=== PATIENT | female | born 1985 | race Caucasian/White ===

== ENCOUNTER 2017-01-18 18:22 | Emergency (ER) | payer OTHER ==
[~2017-01-18] VITALS: Ht 170.2 cm; Wt 104.0 kg
[~2017-01-18 18:22] MED LIST: ALBUAER2 INH; DOCU-94 PO; PRENTAB26 PO; RANI150T3 PO
[2017-01-18 18:29] VITALS: TEMP 37.1; Ht 170.2 cm; Wt 104.0 kg
[2017-01-18] MEDS ORDERED: DEXAMETHASONE SOD INJ 10 MG/ML VIAL IM ONE (19:00)
[2017-01-18] MEDS ORDERED: MoRPHine SULFATE 4 MG/ML 1 ML CARP\\VIAL IM STA (19:00)
[2017-01-18] MEDS ORDERED: CITA20TA4 PO (19:00)
[2017-01-18] MEDS ORDERED: BCPILLS PO (19:00)
[2017-01-18] MEDS ORDERED: KETOROLAC TROMETHAMINE 60 MG/2 ML VIAL IM STA (19:00)
[2017-01-18] MEDS ORDERED: PRVHFAIN INH (19:00)
[2017-01-18] MEDS ORDERED: ONDANSETRON 4MG OD TAB PO ONE (19:00)
[2017-01-18] MEDS ORDERED: VALA1TAB31 PO (19:00)
[2017-01-18] MEDS ORDERED: ACET-1256 PO (19:01)
--- NOTE | 2017-01-18 19:48 | DIAGNOSTIC IMAGING REPORT ---
LUMBAR SPINE 5 VIEWS HISTORY: Low back pain. COMPARISON: None. FINDINGS: There is no fracture. No subluxation. Disc spaces are preserved. Cholecystectomy. IMPRESSION: No fracture or subluxation within the lumbar spine. Electronically signed by: Blake Hart M.D. 01/18/2017 7:47 PM Dictated Date/Time: 01/18/2017 7:46 PM
[2017-01-18] MEDS ORDERED: PRED50TA PO (20:28)
[2017-01-18] MEDS ORDERED: CYCL10TA6 PO (20:28)
[2017-01-18] MEDS ORDERED: OXYC1TAB3 PO (20:28)
[2017-01-18] MEDS ORDERED: OXYCODONE IR HOME PACK PO ONE (20:30)
[2017-01-18] MEDS ORDERED: FLEXERIL HOME PACK 10 MG VIAL PO ONE (20:30)
--- NOTE | 2017-01-18 20:30 | EMERGENCY ROOM VISIT NOTE ---
ED Visit Note First contact with patient: 18:36 Chief Complaint: Back Pain - Severe History of Present Illness: Patient is a 31-year-old female who presents to the emergency department today for evaluation of her low back pain. She's had increasing low back pain issues over the last few weeks. This evening, while lifting up her child, she felt an immediate pain and pop in her low back. She has had intense pain with change in position. She denies any numbness or weakness into the distal x-rays. She denies any pain radiating. She denies any loss of control bowel/bladder saddle anesthesia. She rates her current discomfort as a 3/10. She is tried nothing for her symptoms to this point. Patient denies any fevers, chills, abdominal pain, hematochezia, melena, hematuria, or dysuria. Medications: Reviewed and discussed with the patient. Allergies: Sucralfate PMH: No pertinent past medical history. SHx: Patient is a 31-year-old female who lives locally. ROS: All pertinent positive and negative review of systems are appropriately documented in the History of Present Illness. Physical Exam: VITAL SIGNS - Vital signs and nursing notes were reviewed. GENERAL - 31-year-old female appearing her stated age and in noticeable discomfort throughout the exam. NECK - FROM of the cervical spine. ABDOMEN - Abdominal contour obese without pulsations or visible masses. BS normoactive all four quadrants. No tenderness, palpable masses, hepatosplenomegaly, or ascites noted. MUSCULOSKELETAL - ROM of the lumbar spine region was limited secondary to patient discomfort. Pt was seated on the exam table. Pt made guarded movements when asked to change position. No step-off deformities were palpated down the thoracolumbar spines. Moderate Tenderness to Palpation experienced at the level of the Lumbar paraspinal muscle distribution. No reproducible tenderness to palpation across the iliac spine. NEUROLOGIC - REFLEXES: +3/4 patellar reflexes B/L. SENSORY: Spinothalamic tract was found to be intact with ability to discriminate sharp versus dull sensation at the level of hip joint down do the great toe. No sensory defects of the dorsal column were appreciated utilizing light touch for evaluation. CEREBELLAR: Pt able to perform rapid alternating movements of the feet. EXTREMITIES - Range of Motion - No tremors, ticks, or fasciculations of the lower extremities noticed during inspection. FROM of the lower extremities. No clonus noted with PROM of the lower extremities bilaterally. Pt had +5/5 strength appreciated bilaterally in the lower extremities against examiner's resistance. VASCULAR - Capillary refill of the great toe was brisk. No mottling or blanching of the extremities present. +3/5 dorsalis pedis pulses palpated bilaterally. IMAGING: LUMBAR SPINE 5 VIEWS HISTORY: Low back pain. COMPARISON: None. FINDINGS: There is no fracture. No subluxation. Disc spaces are preserved. Cholecystectomy. IMPRESSION: No fracture or subluxation within the lumbar spine. ED Course: Patient was seen and evaluated by myself. Patient was treated with formal grams morphine, 10 mg Decadron, 60 mg Toradol, and 4 mg Zofran. X-ray of the lumbar spine was obtained. Imaging results above. Patient was reevaluated and reports feeling somewhat better at this time. The patient was educated on imaging studies. She was educated on following with her primary care provider from today's visit. Patient educated on worrisome symptoms for return visit to the emergency department. Patient discharged home in good condition. In the evaluation and treatment of this patient the following differential diagnoses were considered: Cauda equina syndrome, discitis, HNP, sciatica, epidural abscess, psoas abscess, musculoskeletal strain, lumbar fracture, lumbar dislocation, lumbar subluxation, spondylolisthesis, spondylosis, or compression fracture. Given the patient's presentation and exam findings, I did elect to perform the above-mentioned workup. The patient presents today with acute onset of low back pain. She had been experiencing pain in her lumbar spine for the past several weeks prior to this. Reflexes are intact. Strength is intact. She has no worrisome exam findings for compressive etiology at this point. Her pain was adequately controlled the emergency department. She was placed on Flexeril, prednisone, and OxyIR for home. She'll follow-up with her primary care provider from today's visit or return for any changing/worsening symptoms. Patient discharged home afebrile and in good condition with her significant other driving. Impression: Lumbar Strain, Musculoskeletal Pain Discharge Instructions: You have been treated in the Emergency Department for Back Pain. You have received pain medicine in the emergency department which impairs your ability to operate a vehicle. It is illegal for you to drive after receiving these medicines. You have been prescribed OxyIR to be used for pain control. This is a narcotic medication. You cannot drive or consume alcohol while on this medicine. This medicine should only be used for pain that cannot be controlled with over-the- counter pain medicines. You have been prescribed Flexeril (cyclobenzaprine) 1-2 tabs orally, three times per day. Do NOT exceed 30 mg (6 tabs) per day. Take your first dose at bedtime as it can make you drowsy. Always take all medications as prescribed. You have been prescribed Prednisone 50 mg to be taken orally once a day for the next 4 days. This is an anti-inflammatory medicine to be used to help minimize your symptoms. You should take the COMPLETE course of the medication. For pain control, you can use the following [id number] medicines (if >12 yo): - Regular strength (325mg/tab) Tylenol (acetaminophen) 2 tabs every 4-6 hours as needed. Do not exceed 12 tablets in a 24 hour period. Avoid taking more than 4 grams (4000 mg) of Tylenol per day. This includes any other sources of acetaminophen you may take on a regular basis. - Regular strength (200 mg/tab) Advil (ibuprofen) 1-2 tabs every 4-6 hours as needed. Do not exceed a dose of 3200 mg per day. If this is an acute injury, ice can be applied to the area of pain for the first 3 days to help decrease pain and inflammation. After the first 3 days, a heating pad can be used over the area for continued soothing relief. You should schedule a follow-up appointment in 2-3 days with your Primary Care Provider for further evaluation and treatment of your back pain. Return to the Emergency Department if your current symptoms worsen despite treatment course outlined above, or if you develop any of the following symptoms : intractable pain despite aforementioned treatment course, loss of control of your bowel or bladder, numbness or tingling in your groin, or development of a fever. Current/Historical Medications Scheduled Control Pills ( Control Pills), 1 TAB PO DAILY Citalopram Hydrobromide (Citalopram Hydrobromide), 20 MG PO DAILY Cyclobenzaprine Hcl (Flexeril), 10 MG PO TID Prednisone (Prednisone), 50 MG PO DAILY Scheduled PRN Acetaminophen (Tylenol), 1,000 MG PO Q6H PRN for Pain Albuterol (Ventolin Hfa), 2 PUFFS INH Q4H PRN for SOB/Wheezing Oxycodone Ir (Roxicodone Ir), 1-2 TAB PO Q4H PRN for Pain Valacyclovir Hcl (Valtrex), 1,000 MG PO UD PRN for Cold Sore(s) Allergies Coded Allergies: Sucralfate (Verified Allergy, Unknown, rash, pruritis, 01/16/16) pt Vital Signs Date Time Temp Pulse Resp B/P Pulse Ox O2 Delivery O2 Flow Rate FiO2 01/18/17 18:29 37.1 91 18 134/81 97 Room Air Medications Administered Medications (Trade) Dose Ordered Sig/Jaimie Route Start Time Stop Time Status Last Admin Dose Admin Morphine Sulfate (MoRPHine SULFATE INJ) 4 mg NOW STAT IM 01/18/17 19:00 01/18/17 19:02 DC 01/18/17 19:15 4 MG Ketorolac Tromethamine (Toradol Inj) 60 mg NOW STAT IM 01/18/17 19:00 01/18/17 19:02 DC 01/18/17 19:15 60 MG Dexamethasone Sodium Phosphate (Decadron Inj) 10 mg NOW ONCE IM 01/18/17 19:00 01/18/17 19:02 DC 01/18/17 19:15 10 MG Ondansetron HCl (Zofran Odt) 4 mg ONE ONCE PO 01/18/17 19:00 01/18/17 19:02 DC 01/18/17 19:15 4 MG Departure Information Impression Primary Impression: Strain of lumbar region Dispostion Home / Self-Care Condition GOOD Prescriptions Prednisone (Prednisone) 50 Mg Tab 50 MG PO DAILY for 4 Days, #4 TAB Prov: Preston Souza PA-C 01/18/17 Cyclobenzaprine Hcl (FLEXERIL) 10 Mg Tab 10 MG PO TID for 5 Days, #15 TAB Prov: Preston Souza PA-C 01/18/17 Oxycodone Ir (Roxicodone Ir) 5 Mg Tab 1-2 TAB PO Q4H Y for Pain, #20 TAB For Initial Treatment Prov: Preston Souza PA-C 01/18/17 Referrals Jose Garcia M.D. (PCP) Patient Instructions ED Sprain Strain Lumbar, My [facility] Additional Instructions You have been treated in the Emergency Department for Back Pain. You have received pain medicine in the emergency department which impairs your ability to operate a vehicle. It is illegal for you to drive after receiving these medicines. You have been prescribed OxyIR to be used for pain control. This is a narcotic medication. You cannot drive or consume alcohol while on this medicine. This medicine should only be used for pain that cannot be controlled with over-the- counter pain medicines. You have been prescribed Flexeril (cyclobenzaprine) 1-2 tabs orally, three times per day. Do NOT exceed 30 mg (6 tabs) per day. Take your first dose at bedtime as it can make you drowsy. Always take all medications as prescribed. You have been prescribed Prednisone 50 mg to be taken orally once a day for the next 4 days. This is an anti-inflammatory medicine to be used to help minimize your symptoms. You should take the COMPLETE course of the medication. For pain control, you can use the following oqsz-qbi-ehdoive medicines (if >12 yo): - Regular strength (325mg/tab) Tylenol (acetaminophen) 2 tabs every 4-6 hours as needed. Do not exceed 12 tablets in a 24 hour period. Avoid taking more than 4 grams (4000 mg) of Tylenol per day. This includes any other sources of acetaminophen you may take on a regular basis. - Regular strength (200 mg/tab) Advil (ibuprofen) 1-2 tabs every 4-6 hours as needed. Do not exceed a dose of 3200 mg per day. If this is an acute injury, ice can be applied to the area of pain for the first 3 days to help decrease pain and inflammation. After the first 3 days, a heating pad can be used over the area for continued soothing relief. You should schedule a follow-up appointment in 2-3 days with your Primary Care Provider for further evaluation and treatment of your back pain. Return to the Emergency Department if your current symptoms worsen despite treatment course outlined above, or if you develop any of the following symptoms : intractable pain despite aforementioned treatment course, loss of control of your bowel or bladder, numbness or tingling in your groin, or development of a fever. Problem Qualifiers Primary Impression: Strain of lumbar region Encounter type: initial encounter Qualified Codes: S39.012A - Strain of muscle, fascia and tendon of lower back, initial encounter
[2017-01-18 20:38] VITALS: BP 136/78; PULSE 79; O2SAT 99
== END 2017-01-18 20:39 | disposition home or self-care (01) ==
LOC: C.EDB 18:23 → C.EDD 20:39
DX: S39.012A Strain of muscle, fascia and tendon of lower back, initial encounter (principal); X50.1XXA Overexertion from prolonged static or awkward postures, initial encounter; M79.1 Myalgia; Z79.3 Long term (current) use of hormonal contraceptives; Z79.899 Other long term (current) drug therapy

== ENCOUNTER → 2017-03-07 | Outpatient (CLI) | payer OTHER ==
[~2017-03-07] MED LIST changes: +ACET-1256 PO; -ALBUAER2 INH; +BCPILLS PO; +CITA20TA4 PO; -DOCU-94 PO; +OXYC1TAB3 PO; -PRENTAB26 PO; +PRVHFAIN INH; -RANI150T3 PO; +VALA1TAB31 PO
== END | disposition home or self-care (01) ==
LOC: C.PAPS 10:59
PROVIDERS: ATTEND Obstetrics & Gynecology
DX: Z01.419 Encounter for gynecological examination (general) (routine) without abnormal findings (principal)

== ENCOUNTER 2024-05-04 07:57 | Inpatient (IN) ==
[2024-05-04] MEDS: SODIUM CHLORIDE 0.9% 1,000 ML IV ONE (08:22)
[2024-05-04] MEDS: ONDANSETRON INJ 2 MG/ML 2 ML VIAL IV STA (08:23)
--- NOTE | 2024-05-04 08:23 | Emergency Department Note ---
Impression & Plan Pneumonia, Vomiting ED Provider Note NAME: BAUTISTA ESCALERA AGE: 38 SEX: F : 1985 ARRIVES VIA: Walk-In INFORMANT: Patient, ED PROVIDER(S): Jose F Parra DO CHIEF COMPLAINT: Fever HPI: The patient is a 38-year-old female who presented to the emergency department for an evaluation of difficulty breathing nausea and diarrhea. The patient started with GI symptoms last Saturday. She started with nausea vomiting and diarrhea. She went to see her family doctor. She had an outpatient workup which included an x-ray of the chest. She was found to have a multifocal pneumonia. She was started on Augmentin. She was also started on prednisone. She is only had 1 day of the Augmentin but this morning she started having worsening symptoms including fever nausea and coughing. For this reason she came to the emergency department for further evaluation. ROS: See above HPI for pertinent positives & negatives. A total of 10 systems reviewed and were otherwise negative. PAST MEDICAL HISTORY: See Below PAST SURGICAL HISTORY: See Below FAMILY HISTORY: See Below SOCIAL HISTORY: See Below HOME MEDICATIONS: See Below ALLERGIES: See Below VITALS: See Below PHYSICAL EXAMINATION: GENERAL: Patient is awake alert in no acute distress patient is resting comfortably and showing no signs of anxiety EYES: The conjunctivae are clear. The pupils are round and reactive. EARS, NOSE, MOUTH AND THROAT: The nose is without any evidence of any deformity. Mucous membranes are moist. Tongue is midline. NECK: The neck is nontender and supple. RESPIRATORY: Diminished breath sounds are noted in the left lung field. There was no tachypnea or conversational dyspnea. CARDIOVASCULAR: Regular rate and rhythm noted there no murmurs rubs or gallops normal S1 normal S2. GASTROINTESTINAL: The abdomen is soft. Abdomen is nontender. MUSCULOSKELETAL/EXTREMITIES: There is no evidence of gross deformity full range of motion is noted in the hips and shoulders. SKIN: There is no obvious evidence of any rash. There are no petechiae, pallor or cyanosis noted. NEUROLOGIC: Patient is awake alert and oriented x3 MEDICAL DECISION MAKING: The patient is a 38-year-old female who presented to the emergency department for an evaluation of nausea vomiting. The patient was recently diagnosed with pneumonia. She was started on Augmentin. She is only been on 24 hours of Augmentin. She presents today with ongoing fever and vomiting. The patient has not been tolerating the p.o. antibiotics. She was treated with IV fluids and IV antibiotics in the emergency department. The patient was reevaluated multiple times. I discussed patient's laboratory and radiographic studies with her. Given her presentation today I was concerned there could be more with this pneumonia so CT angiography of the chest was obtained. There is no signs of venous thromboembolic disease. The patient was treated with IV antibiotics. I discussed her condition with the on-call [facility] hospitalist. Given the vomiting she still might not be a great candidate for outpatient management. They have agreed to evaluate the patient in the emergency department. Triage Nursing notes reviewed. Prior medical records reviewed Vital Signs: reviewed and remarkable for tachycardia and tachypnea. Differential diagnosis: Viral syndrome, otitis, pharyngitis, pneumonia, influenza, meningitis, urinary tract infection, sepsis, bacteremia, as well as other pathologies. ER treatment provided: See below Diagnostics interpreted by me: ECG: EKG was obtained in the emergency department. My interpretation is normal sinus rhythm at 87 bpm. There is no ectopy. There is no acute ST segment abnormalities noted. No previous tracings available. Cardiac Monitoring: An order was placed for continuous cardiac monitoring. The monitor shows a rate of 98 bpm with sinus rhythm. Laboratory studies: As stated above and show below. Imaging studies: See below. Radiographic imaging was reviewed by myself Consultation(s): I discussed this case with Dr. Patton who is on-call for the [facility]ist group. Past Med/Surg History Problem List (Updated 05/04/24 @ 12:43 by Jose F Parra DO) Vomiting (Acute) Pneumonia (Acute) Wart of face Eyelid anomaly Health care maintenance IUD (intrauterine device) in place Mirena placed 08/2019 Obese Adjustment reaction with anxiety and depression (Acute) Asthma (Acute) Carpal tunnel syndrome (Acute) Encounter for gynecological examination without abnormal finding (Acute) Herpes simplex (Acute) Nicotine use disorder (Acute) Medical History Bacterial conjunctivitis Acute bronchitis Acute sinusitis Encounter for IUD insertion Varicella Esophageal reflux Depression Cholecystitis Asthma Surgical History H/O oral surgery S/P cholecystectomy Family History Mother Anxiety Depression Gallbladder disease Skin cancer Sister Anxiety Depression Ovarian cancer Brother Drug abuse Father Hypertension Grandfather Prostate cancer Grandfather (Paternal) Lung cancer Grandmother (Paternal) Stroke Other Colorectal cancer Osteoporosis Denies family history of Diabetes Myocardial infarction Breast cancer Social History Smoking Status: Current every day smoker Tobacco Type: Cigarettes packs per day: 0.5; Second Hand Exposure: Yes; Do You Dip or Chew Tobacco: No; Hx Alcohol Use: Yes Alcohol type: beer, wine and hard liquor Alcohol Intake Frequency: 2-4 x/Month Hx Substance Use: No Preferred Language: Maori Communication Ability: Effective Visual Impairment: Limited Hearing Ability: Normal marital status: Current Living Situation: Alone and Family current occupational status: employed current occupation: Nurse Companion How many Children do You have: 1 Feels Safe at Home: Yes Childhood Exposure to Second-Hand Smoke: No caffeine: Yes Dental Care, Regularly: Yes Physical Activity Frequency: 3-4 Times per Week Seatbelt Use: always Sunscreen Use: Yes Assistive Devices: Glasses Allergies Allergies Allergy/AdvReac Type Severity Reaction Status Date / Time sucralfate Allergy Unknown rash, Verified 05/02/24 15:31 pruritis Animal dander - Cats Allergy Uncoded 05/02/24 15:31 Animal dander - Dogs Allergy Uncoded 05/02/24 15:31 Home Meds Home Medications Medication Instructions Recorded Confirmed albuterol sulfate 90 mcg/actuation 1 - 2 puff inhalation .Q4-6H PRN 05/04/24 05/04/24 aerosol inhaler Other Previous Rx's Medication Instructions Recorded valacyclovir 1 gram tablet 2,000 mg (2 x 1 gram) PO BID 5 04/19/23 days #20 tabs albuterol sulfate 1.25 mg/3 mL 1.25 mg (3 mL) continuous 10/21/23 solution for nebulization nebulization .COMPLEX PRN bronchospasm #90 mL escitalopram oxalate 20 mg tablet 20 mg PO DAILY #90 tabs 10/21/23 fluticasone fur. 100 mcg-umeclid 1 inh inhalation DAILY #60 ea 01/06/24 62.5 mcg-vilant 25 mcg inhalat.powder (Trelegy Ellipta) prednisone 10 mg tablet See Rx Instructions PO DAILY #30 05/02/24 tabs amoxicillin 875 mg-potassium 1 tab PO BID 10 days #20 tabs 05/03/24 clavulanate 125 mg tablet Results & Data (ED) Vital Signs Vital Signs - 24 hr 05/04/24 08:07 05/04/24 08:27 05/04/24 08:28 Temperature 36.0 C L Temperature Source Temporal Artery Scan Pulse Rate 96 H 93 H 91 H Pulse Rate from SpO2 Sensor 93 H Respiratory Rate 20 17 Respiratory Effort / Characteristics Non-Labored Spontaneous Respiratory Depth Normal Blood Pressure 116/72 Blood Pressure Mean 86 Pulse Oximetry 95 94 Sepsis Recent Fever Within 48 Hours No Sepsis New/Unexplained Change in Mental Status N/A Sepsis Action Taken by Nursing No Action Required 05/04/24 08:42 05/04/24 09:03 05/04/24 09:42 Temperature Temperature Source Pulse Rate 85 90 97 H Pulse Rate from SpO2 Sensor 86 90 99 H Respiratory Rate 22 20 20 Respiratory Effort / Characteristics Respiratory Depth Blood Pressure Blood Pressure Mean Pulse Oximetry 95 95 92 Sepsis Recent Fever Within 48 Hours Sepsis New/Unexplained Change in Mental Status Sepsis Action Taken by Nursing 05/04/24 09:57 05/04/24 10:31 05/04/24 10:39 Temperature Temperature Source Pulse Rate 93 H 98 H Pulse Rate from SpO2 Sensor 94 H 97 H Respiratory Rate 18 25 H Respiratory Effort / Characteristics Respiratory Depth Blood Pressure 121/91 Blood Pressure Mean 111 Pulse Oximetry 95 94 Sepsis Recent Fever Within 48 Hours Sepsis New/Unexplained Change in Mental Status Sepsis Action Taken by Skilled Nursing Medications Current Medication List: was personally reviewed by me Laboratory Data Attestation: I reviewed the patient's lab results. 05/04/24 08:25 05/04/24 08:25 Lab Results 05/04/24 05/04/24 05/04/24 Range/Units 08:25 08:33 08:39 WBC 14.71 H (4.8-10.8) K/ul RBC 4.11 L (4.20-5.40) M/uL Hgb 12.9 (12.0-16.0) g/dl Hct 37.2 (37.0-47.0) % MCV 90.5 (80.0-100.0) fL MCH 31.4 (25.0-34.0) pg MCHC 34.7 (32.0-36.0) g/dL RDW Std Deviation 42.7 (36.4-46.3) fL RDW Coeff of Jeff 12.9 (11.5-14.5) % Plt Count 304 (130-400) K/uL MPV 10.5 (9.4-12.4) fL Immature Gran % (Auto) 0.4 % Neut % (Auto) 84.7 % Lymph % (Auto) 8.2 % [place] % (Auto) 6.3 % Eos % (Auto) 0.1 % Baso % (Auto) 0.3 % Neut # (Auto) 12.46 H (1.40-6.50) K/uL Lymph # (Auto) 1.21 (1.20-3.40) K/uL [place] # (Auto) 0.93 H (0.11-0.59) K/uL Eos # (Auto) 0.01 (0.00-0.50) K/uL Baso # (Auto) 0.04 (0.00-0.20) K/uL Immature Gran # (Auto) 0.06 (0.01-0.20) K/uL PT 11.7 (9.0-12.0) Seconds INR 1.1 (0.9-1.1) APTT 32 H (21-31) Seconds PTT Ratio 1.2 D-Dimer 1370 H* (0-500) ug/L FEU VBG pH 7.44 H (7.36-7.41) VBG pCO2 39 (38-50) mmHg VBG pO2 38 mmHg VBG HCO3 27 mmol/L VBG O2 Saturation 70.8 % VBG Base Excess 2.2 mEq/L Sodium 132 L (136-145) mmol/L Potassium 3.0 L (3.5-5.1) mmol/L Chloride 99 (98-107) mmol/L Carbon Dioxide 25 (21-32) mmol/L Anion Gap 8 (3-11) BUN 8 (6-23) mg/dl Creatinine 0.80 (0.6-1.2) mg/dl Est Cr Clr Drug Dosing 118.1 ml/min Est GFR ( Amer) 106.9 ml/min Est GFR (Non-Af Amer) 92.2 ml/min BUN/Creatinine Ratio 10.0 (10-20) Glucose 120 H (70-99(Fasting)) mg/dl Lactate 0.9 (0.4-2.0) mmol/L Calcium 8.7 (8.6-10.3) mg/dl Magnesium 1.4 L (1.7-2.4) mg/dl Total Bilirubin 0.4 (0.2-1.0) mg/dl Direct Bilirubin 0.2 (0-0.2) mg/dl AST 30 (13-39) U/L ALT 17 (7-52) U/L Alkaline Phosphatase 78 (34-104) U/L Troponin I High Sens 5.5 (0-14) pg/ml Total Protein 7.0 (6.0-8.3) gm/dl Albumin 3.8 (3.4-5.0) gm/dl Procalcitonin 0.18 (0-0.5) ng/ml HCG, Qual Negative (Negative) Urine Color Urine Appearance (Clear) Urine pH (4.5-7.5) Ur Specific [place] (1.000-1.030) Urine Protein (Negative) Urine Glucose (UA) (Negative) Urine Ketones (Negative) Urine Blood (Negative) Urine Nitrite (Negative) Urine Bilirubin (Negative) Urine Urobilinogen (Negative) Ur Leukocyte Esterase (Negative) Adenovirus (PCR) Not Detected (NotDetected) B. pertussis DNA (PCR) Not Detected (NotDetected) B.parapertussis DNA PCR Not Detected (NotDetected) C. pneumoniae DNA (PCR) Not Detected (NotDetected) Coronavirus OC43 (PCR) Not Detected (NotDetected) Coronavirus HKU1 (PCR) Not Detected (NotDetected) Coronavirus 229E (PCR) Not Detected (NotDetected) SARS-CoV-2 (PCR) Not Detected (NotDetected) Coronavirus NL63 (PCR) Not Detected (NotDetected) Human Metapneumovir PCR Not Detected (NotDetected) Influenza Type A (PCR) Not Detected (NotDetected) Influenza Type B (PCR) Not Detected (NotDetected) M. pneumoniae (PCR) Not Detected (NotDetected) Parainfluenza 1 (PCR) Not Detected (NotDetected) Parainfluenza 2 (PCR) Not Detected (NotDetected) Parainfluenza 3 (PCR) Not Detected (NotDetected) Parainfluenza 4 (PCR) Not Detected (NotDetected) RSV (PCR) Not Detected (NotDetected) Entero/Rhino (PCR) Not Detected (NotDetected) 05/04/24 Range/Units 09:20 WBC (4.8-10.8) K/ul RBC (4.20-5.40) M/uL Hgb (12.0-16.0) g/dl Hct (37.0-47.0) % MCV (80.0-100.0) fL MCH (25.0-34.0) pg MCHC (32.0-36.0) g/dL RDW Std Deviation (36.4-46.3) fL RDW Coeff of Jeff (11.5-14.5) % Plt Count (130-400) K/uL MPV (9.4-12.4) fL Immature Gran % (Auto) % Neut % (Auto) % Lymph % (Auto) % [place] % (Auto) % Eos % (Auto) % Baso % (Auto) % Neut # (Auto) (1.40-6.50) K/uL Lymph # (Auto) (1.20-3.40) K/uL [place] # (Auto) (0.11-0.59) K/uL Eos # (Auto) (0.00-0.50) K/uL Baso # (Auto) (0.00-0.20) K/uL Immature Gran # (Auto) (0.01-0.20) K/uL PT (9.0-12.0) Seconds INR (0.9-1.1) APTT (21-31) Seconds PTT Ratio D-Dimer (0-500) ug/L FEU VBG pH (7.36-7.41) VBG pCO2 (38-50) mmHg VBG pO2 mmHg VBG HCO3 mmol/L VBG O2 Saturation % VBG Base Excess mEq/L Sodium (136-145) mmol/L Potassium (3.5-5.1) mmol/L Chloride (98-107) mmol/L Carbon Dioxide (21-32) mmol/L Anion Gap (3-11) BUN (6-23) mg/dl Creatinine (0.6-1.2) mg/dl Est Cr Clr Drug Dosing ml/min Est GFR ( Amer) ml/min Est GFR (Non-Af Amer) ml/min BUN/Creatinine Ratio (10-20) Glucose (70-99(Fasting)) mg/dl Lactate (0.4-2.0) mmol/L Calcium (8.6-10.3) mg/dl Magnesium (1.7-2.4) mg/dl Total Bilirubin (0.2-1.0) mg/dl Direct Bilirubin (0-0.2) mg/dl AST (13-39) U/L ALT (7-52) U/L Alkaline Phosphatase (34-104) U/L Troponin I High Sens (0-14) pg/ml Total Protein (6.0-8.3) gm/dl Albumin (3.4-5.0) gm/dl Procalcitonin (0-0.5) ng/ml HCG, Qual (Negative) Urine Color Yellow Urine Appearance Clear (Clear) Urine pH 6.0 (4.5-7.5) Ur Specific [place] 1.010 (1.000-1.030) Urine Protein Negative (Negative) Urine Glucose (UA) Negative (Negative) Urine Ketones Trace H (Negative) Urine Blood Negative (Negative) Urine Nitrite Negative (Negative) Urine Bilirubin Negative (Negative) Urine Urobilinogen Negative (Negative) Ur Leukocyte Esterase Negative (Negative) Adenovirus (PCR) (NotDetected) B. pertussis DNA (PCR) (NotDetected) B.parapertussis DNA PCR (NotDetected) C. pneumoniae DNA (PCR) (NotDetected) Coronavirus OC43 (PCR) (NotDetected) Coronavirus HKU1 (PCR) (NotDetected) Coronavirus 229E (PCR) (NotDetected) SARS-CoV-2 (PCR) (NotDetected) Coronavirus NL63 (PCR) (NotDetected) Human Metapneumovir PCR (NotDetected) Influenza Type A (PCR) (NotDetected) Influenza Type B (PCR) (NotDetected) M. pneumoniae (PCR) (NotDetected) Parainfluenza 1 (PCR) (NotDetected) Parainfluenza 2 (PCR) (NotDetected) Parainfluenza 3 (PCR) (NotDetected) Parainfluenza 4 (PCR) (NotDetected) RSV (PCR) (NotDetected) Entero/Rhino (PCR) (NotDetected) Administered Medications Discontinued Medications Sodium Chloride (Nss) 1,000 mls @ 999 mls/hr IV .Q1H1M ONE Stop: 05/04/24 09:16 Last Infusion: 05/04/24 10:35 Dose: Infused Documented By: Admin: 05/04/24 08:22 Dose: 999 mls/hr Documented By: HS Magnesium Sulfate/Dextrose (Magnesium Sulfate / D5w) 1 gm in 100 mls @ 100 mls/hr IV NOW STA Stop: 05/04/24 10:06 Last Infusion: 05/04/24 11:40 Dose: Infused Documented By: Admin: 05/04/24 10:35 Dose: 100 mls/hr Documented By: HS Ceftriaxone Sodium (Rocephin) 2,000 mg in 50 mls @ 100 mls/hr IV NOW STA Stop: 05/04/24 10:16 Last Infusion: 05/04/24 11:40 Dose: Infused Documented By: Admin: 05/04/24 10:35 Dose: 100 mls/hr Documented By: HS Ioversol (Optiray 320 125ml) 118 ml IV ONCE ONE Stop: 05/04/24 09:42 Last Admin: 05/04/24 09:41 Dose: 118 ml Documented By: KSF Ondansetron HCl (Ondansetron Inj 2 Mg/Ml 2 Ml Vial) 4 mg IV NOW STA Stop: 05/04/24 08:17 Last Admin: 05/04/24 08:23 Dose: 4 mg Documented By: HS Potassium Chloride (Potassium Chloride 10 Meq Tabcr) 20 meq PO NOW STA Stop: 05/04/24 09:08 Last Admin: 05/04/24 10:35 Dose: 20 meq Documented By: HS Imaging Data Attestation: I personally reviewed and interpreted this imaging study as follows: My Impression: 1 view chest x-ray was obtained in the emergency department. My interpretation is bilateral infiltrates noted, there is no free air, final report below. Radiologist's Impression: Chest X-Ray 05/04/24 08:16 XR chest 1V portable CLINICAL HISTORY: Sepsis TECHNIQUE: Single frontal radiograph of the chest was obtained. Comparison: Comparison is made to chest radiograph 05/02/2024 FINDINGS: No lines and tubes are seen. The cardiomediastinal silhouette is normal. Right greater than left upper lobe airspace opacities are seen. No evidence of pleural effusion or pneumothorax. IMPRESSION: Bilateral airspace opacities are increased from prior exam compatible with multifocal pneumonia. ACT 112: Negative or not required by law. Electronically signed by: Sahil Marquis M.D. 05/04/2024 8:42 AM Chest CTA 05/04/24 09:10 CT ANGIOGRAM OF THE CHEST CLINICAL HISTORY: Sepsis. Fever. Chest congestion COMPARISON STUDY: Chest x-ray dated 05/04/2024. TECHNIQUE: Following the IV administration of 118 cc of Optiray 320, CT angiogram of the chest was performed from the upper abdomen to the thoracic inlet utilizing the pulmonary embolus protocol. Images are reviewed in the axial, sagittal, and coronal planes. 3-D MIPS images are created and assessed. IV contrast was administered without complication. A dose lowering technique was utilized adhering to the principles of ALARA. CT DOSE: 851.21 mGy.cm FINDINGS: Thyroid: Imaged portions of the thyroid gland are normal in size and attenuation. Thoracic aorta: The thoracic aorta is normal in caliber and demonstrates standard 3-vessel arch anatomy. No dissection is seen. Pulmonary vasculature: The pulmonary trunk is normal in caliber. There are no filling defects identified in main, lobar, or segmental pulmonary branches to suggest pulmonary embolus. Heart: The heart is normal in size and without pericardial effusion. Lungs and pleural spaces: There is dense airspace consolidation. The left upper lobe. Milder airspace consolidation is seen in the right upper lobe. Minimal patchy consolidation is seen in the left lower lobe and lingula. Findings are consistent with multifocal pneumonia. The trachea and central airways are clear. There is a small left pleural effusion. 3 to 4 mm foci of nodularity in the right upper and lower lobes on image #119 and in the left lower lobe on image #120 are likely inflammatory. Mediastinum: Prominent prevascular nodes measure up to 10 mm short axis. These are likely reactive. Bridget: Clear. Axillae: There is no axillary lymphadenopathy. Upper abdomen: Partially visualized upper abdominal viscera is within normal limits. Skeletal structures: No lytic or blastic bony lesions are seen. IMPRESSION: 1. There is no evidence of pulmonary embolus in the main, lobar, or segmental pulmonary arteries. 2. Multifocal pneumonia as above. Radiographic follow-up to resolution is recommended. 3. Small left pleural effusion. 4. Additional scattered 3 to 4 mm foci of nodularity are seen throughout both lungs. These are almost certainly inflammatory. A follow-up chest CT in 3-4 months time is recommended to document resolution. ACT 112: Negative or not required by law. Electronically signed by: Kodi Andres M.D. 05/04/2024 10:22 AM Discharge Plan Visit Data Chief Complaint: Abdominal Pain Stated Complaint: CHILLS,FEVER,VOMITING ED Provider: Jose F Parra Discharge Problem: Pneumonia, Vomiting Patient Disposition: Being Evaluated by Hospitalist Discharge Problem: Pneumonia Qualifiers: Pneumonia type: due to unspecified organism Laterality: bilateral Lung location: unspecified part of lung Qualified Code(s): J18.9 - Pneumonia, unspecified organism Vomiting Qualifiers: Vomiting type: unspecified Nausea presence: with nausea Qualified Code(s): R 11.2 - Nausea with vomiting, unspecified
[2024-05-04 08:39] LABS: Basophils # (auto) 0.04 K/uL (0.00-0.20); Basophils % (auto) 0.3 %; Eosinophils # (auto) 0.01 K/uL (0.00-0.50); Eosinophils % (auto) 0.1 %; Hematocrit (blood only) 37.2 % (37.0-47.0); Hemoglobin 12.9 g/dl (12.0-16.0); Immature Granulocytes # (auto) 0.06 K/uL (0.01-0.20); Immature Granulocytes % (auto) 0.4 %; Lymphocytes # (auto) 1.21 K/uL (1.20-3.40); Lymphocytes % (auto) 8.2 %; Mean Corpuscular Hemoglobin 31.4 pg (25.0-34.0); Mean Corpuscular Hgb Conc 34.7 g/dL (32.0-36.0); Mean Corpuscular Volume 90.5 fL (80.0-100.0); Mean Platelet Volume 10.5 fL (9.4-12.4); Monocytes # (auto) 0.93 K/uL (0.11-0.59); Monocytes % (auto) 6.3 %; Neutrophils # (auto) 12.46 K/uL (1.40-6.50); Neutrophils % (auto) 84.7 %; Platelet Count 304 K/uL (130-400); RDW Coefficient of Variation 12.9 % (11.5-14.5); RDW Standard Deviation 42.7 fL (36.4-46.3); Red Blood Count 4.11 M/uL (4.20-5.40); White Blood Count 14.71 K/ul (4.8-10.8)
--- NOTE | 2024-05-04 08:43 | XRay Report ---
XR chest 1V portable CLINICAL HISTORY: Sepsis TECHNIQUE: Single frontal radiograph of the chest was obtained. Comparison: Comparison is made to chest radiograph 05/02/2024 FINDINGS: No lines and tubes are seen. The cardiomediastinal silhouette is normal. Right greater than left uppe r lobe airspace opacities are seen. No evidence of pleural effusion or pneumothorax. IMPRESSION: Bilateral airspace opacities are increased from prior exam compatible with multifocal pneumonia. ACT 112: Negative or not required by law. Electronically signed by: Sahil Marquis M.D. 05/04/2024 8:42 AM
[2024-05-04 08:53] LABS: Pregnancy Test, Serum Negative (Negative)
[2024-05-04 08:56] LABS: Albumin Level 3.8 gm/dl (3.4-5.0); Bilirubin Direct 0.2 mg/dl (0-0.2); Bilirubin,Total 0.4 mg/dl (0.2-1.0); Calcium 8.7 mg/dl (8.6-10.3); Creatinine Clr Calc Pharmacy 118.1 ml/min; Est GFR (African American) 106.9 ml/min; Est GFR (Non-African American) 92.2 ml/min; Magnesium 1.4 mg/dl (1.7-2.4)
[2024-05-04 09:01] LABS: Base Excess VBG 2.2 mEq/L; HCO3 VBG 27 mmol/L; Oxygen Saturation VBG 70.8 %; PCO2 VBG 39 mmHg (38-50); PO2 VBG 38 mmHg; pH VBG 7.44 (7.36-7.41)
[2024-05-04 09:02] LABS: Troponin I High Sensitivity 5.5 pg/ml (0-14)
[2024-05-04 09:07] LABS: INR 1.1 (0.9-1.1); Partial Thromboplastin Ratio 1.2; Partial Thromboplastin Time 32 Seconds (21-31); Prothrombin Time 11.7 Seconds (9.0-12.0)
[2024-05-04 09:12] LABS: D Dimer 1370 ug/L FEU (0-500)
[2024-05-04 09:29] LABS: Appearance Urine Clear (Clear); Bilirubin Urine Negative (Negative); Blood Urine Negative (Negative); Color Urine Yellow; Glucose Urine UA Negative (Negative); Ketones Urine Trace (Negative); Leukocyte Esterase Urine Negative (Negative); Nitrite Urine Negative (Negative); Protein Urine Negative (Negative); Urobilinogen Urine Negative (Negative)
[2024-05-04 09:32] LABS: Adenovirus PCR Not Detected (NotDetected); Bordetella parapertussis PCR Not Detected (NotDetected); Bordetella pertussis PCR Not Detected (NotDetected); Chlamydia pneumoniae PCR Not Detected (NotDetected); Coronavirus 229E PCR Not Detected (NotDetected); Coronavirus CoV-2 (COVID19)PCR Not Detected (NotDetected); Coronavirus HKU1 PCR Not Detected (NotDetected); Coronavirus NL63 PCR Not Detected (NotDetected); Coronavirus OC43PCR Not Detected (NotDetected); Human Metapneumovirus PCR Not Detected (NotDetected); Influenza A PCR Not Detected (NotDetected); Influenza B PCR Not Detected (NotDetected); Mycoplasma pneumoniae PCR Not Detected (NotDetected); Parainfluenza Virus 1 PCR Not Detected (NotDetected); Parainfluenza Virus 2 PCR Not Detected (NotDetected); Parainfluenza Virus 3 PCR Not Detected (NotDetected); Parainfluenza Virus 4 PCR Not Detected (NotDetected); Respiratory Syncytial VirusPCR Not Detected (NotDetected); Rhinovirus/Enterovirus PCR Not Detected (NotDetected)
[2024-05-04] MEDS: OPTIRAY 320 125ml IV ONE (09:41)
--- NOTE | 2024-05-04 10:24 | CT Scan Report ---
CT ANGIOGRAM OF THE CHEST CLINICAL HISTORY: Sepsis. Fever. Chest congestion COMPARISON STUDY: Chest x-ray dated 05/04/2024. TECHNIQUE: Following the IV administration of 118 cc of Optiray 320, CT angiogram of the chest was pe rformed from the upper abdomen to the thoracic inlet utilizing the pulmonary embolus protocol. Images are reviewed in the axial, sagittal, and coronal planes. 3-D MIPS images are created and assessed. I V contrast was administered without complication. A dose lowering technique was utilized adhering to the principles of ALARA. CT DOSE: 851.21 mGy.cm FINDINGS: Thyroid: Imaged portions of the thyroid gland are normal in size and attenuation. Thoracic aorta: The thoracic aorta is normal in caliber and demonstrates standard 3-vessel arch anato my. No dissection is seen. Pulmonary vasculature: The pulmonary trunk is normal in caliber. There are no filling defects identif ied in main, lobar, or segmental pulmonary branches to suggest pulmonary embolus. Heart: The heart is normal in size and without pericardial effusion. Lungs and pleural spaces: There is dense airspace consolidation. The left upper lobe. Milder airspace consolidation is seen in the right upper lobe. Minimal patchy consolidation is seen in the left lowe r lobe and lingula. Findings are consistent with multifocal pneumonia. The trachea and central airway s are clear. There is a small left pleural effusion. 3 to 4 mm foci of nodularity in the right upper and lower lobes on image #119 and in the left lower lobe on image #120 are likely inflammatory. Mediastinum: Prominent prevascular nodes measure up to 10 mm short axis. These are likely reactive. Bridget: Clear. Axillae: There is no axillary lymphadenopathy. Upper abdomen: Partially visualized upper abdominal viscera is within normal limits. Skeletal structures: No lytic or blastic bony lesions are seen. IMPRESSION: 1. There is no evidence of pulmonary embolus in the main, lobar, or segmental pulmonary arteries. 2. Multifocal pneumonia as above. Radiographic follow-up to resolution is recommended. 3. Small left pleural effusion. 4. Additional scattered 3 to 4 mm foci of nodularity are seen throughout both lungs. These are almost certainly inflammatory. A follow-up chest CT in 3-4 months time is recommended to document resolutio n. ACT 112: Negative or not required by law. Electronically signed by: Kodi Andres M.D. 05/04/2024 10:22 AM
[2024-05-04] MEDS: MAGNESIUM SULFATE / D5W 1 GM/100 ML BAG IV STA (10:35)
[2024-05-04] MEDS: POTASSIUM CHLORIDE 10 MEQ TABCR PO STA (10:35)
[2024-05-04] MEDS: cefTRIAXone SODIUM 2,000 MG/50 ML BAG IV STA (10:35)
[2024-05-04] MEDS ORDERED: POLYETHYLENE (MIRALAX) 17 GM PACK PO PRN (11:33)
[2024-05-04] MEDS ORDERED: ALBUTEROL 0.083% NEBU SOLN 3 ML VIAL INH PRN (11:43)
[2024-05-04] MEDS ORDERED: NON-FORMULARY MEDICATION (Fluticasone-Umeclidin-Vilanter [Trelegy Ellipta] 100-62.5-25 mcg INH SCH (11:45)
[2024-05-04] MEDS: ESCITALOPRAM OXALATE 20 MG TAB PO SCH (13:21)
[2024-05-04] MEDS: FLUTICASONE FUROATE 100MCG 14 PUFFS/INHALER INH SCH (13:21)
[2024-05-04] MEDS: DOXYCYCLINE HYCLATE 100 MG in DEXTROSE 5% MINI-B 100 ML IV SCH (13:21)
[2024-05-04] MEDS: UMECLIDINIUM/VILANTEROL 62.5/25MCG 7 PUFFS/INHALER INH SCH (13:21)
[2024-05-04] MEDS: LEVALBUTEROL 1.25 MG/3 ML NEB NEB SCH (13:42)
--- NOTE | 2024-05-04 13:49 | History & Physical Report ---
Date of Service May 04, 2024 Assessment & Plan (1) Pneumonia: Plan: Community acquired pneumonia in a 38 yo female with cough, fever, chills. Patient will be admitted to medical Concern for sepsis given leukocytosis and HR above 90. Patient will be placed on antibiotics: ceftriaxone and doxy (2) Obese: Plan: recommend lifestylemodifications. BMI over 35 (3) Adjustment reaction with anxiety and depression: Plan: resume home meds Admission and Anticipated Discharge Date Admission Date: May 04, 2024 History of Present Illness Chief Complaint: SOB Primary Care Provider: Daisy Jurado MD This is a 38 yo female who presented to the ED with eval of difficulty breating nausea and diarrhea. Patient report that the N/V and diarrhea began 3 days ago. She was seen by her PCP and had an outpatient xray of her chest. She was found to have multifocal pneumonia. Patient was placed on augmentin and prednisone. However she reports worsening of her symptoms after just one day. However given her GI complaints, concern that patient may not tolerate her antibiotics so admission was called. Allergies Allergy/AdvReac Type Severity Reaction Status Date / Time sucralfate Allergy Unknown rash, Verified 05/02/24 15:31 pruritis cat dander Allergy Unknown Verified 05/05/24 00:38 dog dander Allergy Unknown Verified 05/05/24 00:38 Home Medications Medication Instructions Recorded Confirmed Type valacyclovir 1 gram tablet 2,000 mg (2 x 1 gram) PO BID 5 04/19/23 05/04/24 Rx days #20 tabs albuterol sulfate 1.25 mg/3 mL 1.25 mg (3 mL) continuous 10/21/23 05/04/24 Rx solution for nebulization nebulization .COMPLEX PRN bronchospasm #90 mL escitalopram oxalate 20 mg tablet 20 mg PO DAILY #90 tabs 10/21/23 05/04/24 Rx fluticasone fur. 100 mcg-umeclid 1 inh inhalation DAILY #60 ea 01/06/24 05/04/24 Rx 62.5 mcg-vilant 25 mcg inhalat.powder (Trelegy Ellipta) prednisone 10 mg tablet See Rx Instructions PO DAILY #30 05/02/24 05/04/24 Rx tabs amoxicillin 875 mg-potassium 1 tab PO BID 10 days #20 tabs 05/03/24 05/04/24 Rx clavulanate 125 mg tablet albuterol sulfate 90 mcg/actuation 1 - 2 puff inhalation .Q4-6H PRN 05/04/24 05/04/24 History aerosol inhaler Other Past Med/Surg History Problem List Vomiting (Acute) Pneumonia (Acute) Wart of face Eyelid anomaly Health care maintenance IUD (intrauterine device) in place Mirena placed 08/2019 Obese Adjustment reaction with anxiety and depression (Acute) Asthma (Acute) Carpal tunnel syndrome (Acute) Encounter for gynecological examination without abnormal finding (Acute) Herpes simplex (Acute) Nicotine use disorder (Acute) Medical History Bacterial conjunctivitis Acute bronchitis Acute sinusitis Encounter for IUD insertion Varicella Esophageal reflux Depression Cholecystitis Asthma Surgical History H/O oral surgery S/P cholecystectomy Family History Mother Anxiety Depression Gallbladder disease Skin cancer Sister Anxiety Depression Ovarian cancer Brother Drug abuse Father Hypertension Grandfather Prostate cancer Grandfather (Paternal) Lung cancer Grandmother (Paternal) Stroke Other Colorectal cancer Osteoporosis Denies family history of Diabetes Myocardial infarction Breast cancer Social History Smoking Status: Never smoker Tobacco Type: Cigarettes packs per day: 0.5; Second Hand Exposure: Yes; Do You Dip or Chew Tobacco: No; Hx Alcohol Use: No Hx Substance Use: No Preferred Language: Peruvian Communication Ability: Effective Visual Impairment: Limited Hearing Ability: Normal Hydrogeology Professor Required: No Beliefs That Will Affect Care: None marital status: Current Living Situation: Alone current occupational status: employed current occupation: Metal Molder How many Children do You have: 1 Other Information That Helps Us Care for You: No Feels Safe at Home: Yes Safety Concerns: Feels Safe At This Time Childhood Exposure to Second-Hand Smoke: No caffeine: Yes Dental Care, Regularly: Yes Physical Activity Frequency: 3-4 Times per Week Seatbelt Use: always Sunscreen Use: Yes Assistive Devices: Glasses Review of Systems Constitutional: + fever and + body aches Eyes: no blind spots Ear, Nose, Mouth, Throat: no ear pain Respiratory: + cough Cardiovascular: no chest pain Gastrointestinal: no abdominal pain Genitourinary: no dysuria Musculoskeletal: no back pain Integumentary: no acne Neurologic: no gait abnormality Psychiatric: no behavioral changes Endocrine: no fatigue Hematologic / Lymphatic: no easy bleeding Allergy / Immunological: no GI upset with certain foods Physical Exam Constitutional: WD/WN, vitals as above Eyes: PERRL, conjunctivae normal, anicteric sclerae ENMT: external ear and nose normal, oropharynx normal Neck: trachea midline, no thyromegaly Respiratory: + respiratory distress and + uses access ory muscles Auscultation: + diminished lung sounds and + wheezes Cardiovascular: RRR, no murmur, no edema Gastrointestinal (Abdomen): normal bowel sounds, soft, nontender, no hepatosplenomegaly Musculoskeletal: no cyanosis or clubbing, extremities motor strength 5/5 Skin: no rashes, warm and dry Neurologic: PERRL, EOMI, accommodation nl, no face palsy, no dysarthria Psychiatric: A+Ox3, euthymic affect Lymphatic: no cervical or axillary lymphadenopathy Results & Data Results & Data Vital Signs (Past 12 Hours) Vital Signs Temp Pulse Pulse Resp BP Pulse Ox Pulse Ox 05/04/24 13:27 100 H 16 93 05/04/24 13:25 39.1 C H 100 H 16 93 05/04/24 13:25 89 L 05/04/24 10:39 98 H 25 H 94 05/04/24 10:31 121/91 05/04/24 09:57 93 H 18 95 05/04/24 09:42 97 H 20 92 05/04/24 09:03 90 20 95 05/04/24 08:42 85 22 95 05/04/24 08:28 91 H 05/04/24 08:27 93 H 17 94 05/04/24 08:07 36.0 C L 96 H 20 116/72 95 O2 Del Method O2 Del Method O2 Flow Rate 05/04/24 13:27 Nasal Cannula 2 05/04/24 13:25 Nasal Cannula 2 05/04/24 13:25 Room Air 05/04/24 10:39 05/04/24 10:31 05/04/24 09:57 05/04/24 09:42 05/04/24 09:03 05/04/24 08:42 05/04/24 08:28 05/04/24 08:27 05/04/24 08:07 PG Care Time/CCT Total # of Minutes Spent Total Time Spent with Patient: Total time spent is greater than 50% in coordination of care (as documented) at patient's floor/unit and/or counseling patient: Coding Level of Care Code 05367 INT INP/OBS CARE 3/75MIN Diagnoses Pneumonia J18.9 Laterality: bilateral Lung location: unspecified part of lung Pneumonia type: due to unspecified organism Obese E66.9 Adjustment reaction with anxiety and depression F43.23 (1) Pneumonia Laterality: bilateral Lung location: unspecified part of lung Pneumonia type: due to unspecified organism Qualified Code(s): J18.9 - Pneumonia, unspecified organism
[2024-05-04] MEDS: POTASSIUM CHLORIDE CRTAB 20 MEQ TABCR PO STA (17:10)
--- NOTE | 2024-05-04 18:35 | Electrocardiogram Report ---
Test Reason : Blood Pressure : / mmHG Vent. Rate : 087 BPM Atrial Rate : 087 BPM P-R Int : 118 ms QRS Dur : 094 ms QT Int : 358 ms P-R-T Axes : 059 061 042 degrees QTc Int : 430 ms Poor data quality, interpretation may be adversely affected Normal sinus rhythm Normal ECG No previous ECGs available Confirmed by Baudilio Ramirez ([id number]) on 05/04/2024 6:35:29 PM Referred By: REFERRED SELF Confirmed By:Baudilio Ramirez
[2024-05-04] MEDS: ACETAMINOPHEN 325 MG TAB PO PRN (20:27)
[2024-05-05] MEDS: ACETAMINOPHEN 1,000 MG/100 ML VIAL IV PRN (01:59)
[2024-05-05] MEDS: ONDANSETRON INJ 2 MG/ML 2 ML VIAL IV PRN (02:06)
[2024-05-05 06:24] LABS: Hematocrit (blood only) 36.9 % (37.0-47.0); Hemoglobin 12.5 g/dl (12.0-16.0); Mean Corpuscular Hemoglobin 30.9 pg (25.0-34.0); Mean Corpuscular Hgb Conc 33.9 g/dL (32.0-36.0); Mean Corpuscular Volume 91.3 fL (80.0-100.0); Mean Platelet Volume 10.3 fL (9.4-12.4); Platelet Count 289 K/uL (130-400); RDW Coefficient of Variation 13.3 % (11.5-14.5); RDW Standard Deviation 45.1 fL (36.4-46.3); Red Blood Count 4.04 M/uL (4.20-5.40); White Blood Count 12.15 K/ul (4.8-10.8)
[2024-05-05 06:40] LABS: BUN Creatinine Ratio 8.6 (10-20); Calcium 8.1 mg/dl (8.6-10.3); Creatinine Clr Calc Pharmacy 134.9 ml/min; Est GFR (African American) 125.6 ml/min; Est GFR (Non-African American) 108.4 ml/min; Potassium 3.3 mmol/L (3.5-5.1)
[2024-05-05 06:58] LABS: C Reactive Protein 43.63 mg/dl (0-0.5)
[2024-05-05] MEDS: cefTRIAXone SODIUM 2,000 MG/50 ML BAG IV SCH (09:43)
[2024-05-05] MEDS: ENOXAPARIN INJ 40 MG/0.4 ML SYR SQ SCH (10:52)
[2024-05-05] MEDS: POTASSIUM CHLORIDE CRTAB 20 MEQ TABCR PO STA (12:50)
--- NOTE | 2024-05-05 17:30 | Hospitalist Progress Note ---
Date of Service May 05, 2024 Assessment & Plan (1) Pneumonia: Plan: Community acquired pneumonia in a 38 yo female with cough, fever, chills. Patient will be admitted to medical Concern for sepsis given leukocytosis and HR above 90. Patient will be placed on antibiotics: ceftriaxone and doxy fever curve is slightly imrpvoing. will monitor. Inflammatory markers are elevated. (2) Obese: Plan: recommend lifestylemodifications. BMI over 35 (3) Adjustment reaction with anxiety and depression: Plan: resume home meds Admission and Anticipated Discharge Date Admission Date: May 04, 2024 Subjective 38 yo female reports no new symptoms. Review of Systems Review of Systems: All systems reviewed & are unremarkable except as noted in HPI & below Physical Exam Constitutional: WD/WN, vitals as above Eyes: PERRL, conjunctivae normal, anicteric sclerae ENMT: external ear and nose normal, oropharynx normal Neck: trachea midline, no thyromegaly Respiratory: + respiratory distress and + uses access ory muscles Auscultation: + diminished lung sounds and + wheezes Cardiovascular: RRR, no murmur, no edema Gastrointestinal (Abdomen): normal bowel sounds, soft, nontender, no hepatosplenomegaly Musculoskeletal: no cyanosis or clubbing, extremities motor strength 5/5 Skin: no rashes, warm and dry Neurologic: PERRL, EOMI, accommodation nl, no face palsy, no dysarthria Psychiatric: A+Ox3, euthymic affect Lymphatic: no cervical or axillary lymphadenopathy Results & Data Results & Data Vital Signs (Past 12 Hours) Vital Signs Temp Pulse Resp BP Pulse Ox O2 Del Method O2 Flow Rate 05/05/24 15:31 37.4 C 94 H 18 126/78 96 Room Air 05/05/24 13:06 76 20 95 Room Air 05/05/24 10:54 38.9 C H 05/05/24 09:54 95 Room Air 05/05/24 09:08 Nasal Cannula 1 05/05/24 08:11 37.6 C H 97 H 18 118/77 95 Room Air 05/05/24 07:18 86 16 95 Nasal Cannula 2 PG Care Time/CCT Total # of Minutes Spent Total Time Spent with Patient: Total time spent is greater than 50% in coordination of care (as documented) at patient's floor/unit and/or counseling patient: Coding Level of Care Code 81314 SUB INP/OBS CARE MIN Diagnoses Pneumonia J18.9 Laterality: bilateral Lung location: unspecified part of lung Pneumonia type: due to unspecified organism Obese E66.9 Adjustment reaction with anxiety and depression F43.23 (1) Pneumonia Laterality: bilateral Lung location: unspecified part of lung Pneumonia type: due to unspecified organism Qualified Code(s): J18.9 - Pneumonia, unspecified organism
[2024-05-06 07:55] LABS: Hematocrit (blood only) 35.7 % (37.0-47.0); Hemoglobin 12.1 g/dl (12.0-16.0); Mean Corpuscular Hemoglobin 31.4 pg (25.0-34.0); Mean Corpuscular Hgb Conc 33.9 g/dL (32.0-36.0); Mean Corpuscular Volume 92.7 fL (80.0-100.0); Mean Platelet Volume 10.6 fL (9.4-12.4); Platelet Count 281 K/uL (130-400); RDW Coefficient of Variation 13.4 % (11.5-14.5); RDW Standard Deviation 45.6 fL (36.4-46.3); Red Blood Count 3.85 M/uL (4.20-5.40); White Blood Count 10.11 K/ul (4.8-10.8)
[2024-05-06 08:30] LABS: BUN Creatinine Ratio 6.9 (10-20); Creatinine Clr Calc Pharmacy 131.2 ml/min; Est GFR (African American) 121.4 ml/min; Est GFR (Non-African American) 104.8 ml/min; Potassium 3.1 mmol/L (3.5-5.1)
[2024-05-06 08:48] LABS: C Reactive Protein 46.47 mg/dl (0-0.5)
--- NOTE | 2024-05-06 17:46 | XRay Report ---
XR chest 2V PA/lateral CLINICAL HISTORY: pneumonia TECHNIQUE: 2 views of the chest were obtained. Comparison: Comparison is made to chest radiograph 05/04/2024 FINDINGS: No lines and tubes are seen. The cardiomediastinal silhouette is normal. Multifocal airspace opacitie s are seen. No evidence of pleural effusion or pneumothorax. IMPRESSION: Multifocal airspace opacities may represent atelectasis, pneumonia, and/or aspiration. ACT 112: Negative or not required by law. Electronically signed by: Sahil Marquis M.D. 05/06/2024 5:44 PM
--- NOTE | 2024-05-06 21:49 | Hospitalist Progress Note ---
Date of Service May 06, 2024 Assessment & Plan (1) Pneumonia: Plan: Community acquired pneumonia in a 38 yo female with cough, fever, chills. Patient will be admitted to medical Concern for sepsis given leukocytosis and HR above 90. Patient will be placed on antibiotics: ceftriaxone and doxy fever curve is slightly imrpvoing. will monitor. Inflammatory markers are elevated. Patient continues with intermittent fevers. (2) Obese: Plan: recommend lifestylemodifications. BMI over 35 (3) Adjustment reaction with anxiety and depression: Plan: resume home meds Admission and Anticipated Discharge Date Admission Date: May 04, 2024 Subjective Patient reports doing well. Feeling much better. Review of Systems Review of Systems: All systems reviewed & are unremarkable except as noted in HPI & below Physical Exam Constitutional: WD/WN, vitals as above ENMT: external ear and nose normal, oropharynx normal Neck: trachea midline, no thyromegaly Respiratory: no respiratory distress and does not use accessory muscles Auscultation: + diminished lung sounds and + wheezes Cardiovascular: RRR, no murmur, no edema Musculoskeletal: no cyanosis or clubbing, extremities motor strength 5/5 Skin: no rashes, warm and dry Psychiatric: A+Ox3, euthymic affect Results & Data Results & Data Vital Signs (Past 12 Hours) Vital Signs Temp Pulse Resp BP Pulse Ox Pulse Ox O2 Del Method 05/06/24 20:55 38.1 C H 05/06/24 20:07 88 16 98 Room Air 05/06/24 19:44 38.4 C H 81 16 101/69 93 Room Air 05/06/24 14:43 37.4 C 88 16 125/84 97 Room Air 05/06/24 13:33 74 18 94 Room Air 05/06/24 13:00 96 05/06/24 11:00 97 O2 Del Method 05/06/24 20:55 05/06/24 20:07 05/06/24 19:44 05/06/24 14:43 05/06/24 13:33 05/06/24 13:00 Room Air 05/06/24 11:00 Room Air PG Care Time/CCT Total # of Minutes Spent Total Time Spent with Patient: Total time spent is greater than 50% in coordination of care (as documented) at patient's floor/unit and/or counseling patient: Coding Level of Care Code 88842 SUB INP/OBS CARE MIN Diagnoses Pneumonia J18.9 Laterality: bilateral Lung location: unspecified part of lung Pneumonia type: due to unspecified organism Obese E66.9 Adjustment reaction with anxiety and depression F43.23 (1) Pneumonia Laterality: bilateral Lung location: unspecified part of lung Pneumonia type: due to unspecified organism Qualified Code(s): J18.9 - Pneumonia, unspecified organism
[2024-05-07 08:05] LABS: Hematocrit (blood only) 33.9 % (37.0-47.0); Hemoglobin 11.4 g/dl (12.0-16.0); Mean Corpuscular Hgb Conc 33.6 g/dL (32.0-36.0); Mean Corpuscular Volume 92.1 fL (80.0-100.0); Platelet Count 291 K/uL (130-400); RDW Coefficient of Variation 13.2 % (11.5-14.5); RDW Standard Deviation 45.1 fL (36.4-46.3); Red Blood Count 3.68 M/uL (4.20-5.40); White Blood Count 8.35 K/ul (4.8-10.8)
[2024-05-07 08:18] LABS: BUN Creatinine Ratio 8.6 (10-20); Calcium 8.1 mg/dl (8.6-10.3); Creatinine Clr Calc Pharmacy 162.8 ml/min; Est GFR (African American) 133.6 ml/min; Est GFR (Non-African American) 115.3 ml/min
[2024-05-07 08:37] LABS: C Reactive Protein 33.58 mg/dl (0-0.5)
[2024-05-07] MEDS: POTASSIUM CHLORIDE CRTAB 20 MEQ TABCR PO STA (12:54)
--- NOTE | 2024-05-07 21:21 | Hospitalist Progress Note ---
Date of Service May 07, 2024 Assessment & Plan (1) Pneumonia: Plan: Community acquired pneumonia in a 38 yo female with cough, fever, chills. Patient will be admitted to medical Concern for sepsis given leukocytosis and HR above 90. Patient will be placed on antibiotics: ceftriaxone and doxy fever curve improving, however on 05/06 pm, patient had fever.. will monitor. Inflammatory markers are elevated but improving. Patient continues with intermittent fevers. (2) Obese: Plan: recommend lifestylemodifications. BMI over 35 (3) Adjustment reaction with anxiety and depression: Plan: resume home meds Admission and Anticipated Discharge Date Admission Date: May 04, 2024 Subjective Patient reports feeling better. Review of Systems Review of Systems: All systems reviewed & are unremarkable except as noted in HPI & below Physical Exam Constitutional: WD/WN, vitals as above Eyes: PERRL, conjunctivae normal, anicteric sclerae ENMT: external ear and nose normal, oropharynx normal Neck: trachea midline, no thyromegaly Respiratory: no respiratory distress and does not use accessory muscles Auscultation: + diminished lung sounds Cardiovascular: RRR, no murmur, no edema Gastrointestinal (Abdomen): normal bowel sounds, soft, nontender, no hepat osplenomegaly Musculoskeletal: no cyanosis or clubbing, extremities motor strength 5/5 Skin: no rashes, warm and dry Neurologic: PERRL, EOMI, accommodation nl, no face palsy, no dysarthria Psychiatric: A+Ox3, euthymic affect Lymphatic: no cervical or axillary lymphadenopathy Results & Data Results & Data Vital Signs (Past 12 Hours) Vital Signs Temp Pulse Resp BP Pulse Ox O2 Del Method 05/07/24 20:25 36.9 C 83 16 118/79 94 Room Air 05/07/24 19:51 72 16 95 Room Air 05/07/24 14:53 37.0 C 81 16 115/77 94 Room Air 05/07/24 13:35 72 16 98 Room Air PG Care Time/CCT Total # of Minutes Spent Total Time Spent with Patient: Total time spent is greater than 50% in coordination of care (as documented) at patient's floor/unit and/or counseling patient: Coding Level of Care Code 05733 SUB INP/OBS CARE 2/35MIN Diagnoses Pneumonia J18.9 Laterality: bilateral Lung location: unspecified part of lung Pneumonia type: due to unspecified organism Obese E66.9 Adjustment reaction with anxiety and depression F43.23 (1) Pneumonia Laterality: bilateral Lung location: unspecified part of lung Pneumonia type: due to unspecified organism Qualified Code(s): J18.9 - Pneumonia, unspecified organism
[2024-05-08 07:23] VITALS: BP 110/69; RESP 18; TEMP 97.9
[2024-05-08 07:33] VITALS: PULSE 66; O2SAT 96
[2024-05-08 08:07] LABS: Hematocrit (blood only) 33.7 % (37.0-47.0); Hemoglobin 11.4 g/dl (12.0-16.0); Mean Corpuscular Hemoglobin 30.8 pg (25.0-34.0); Mean Corpuscular Hgb Conc 33.8 g/dL (32.0-36.0); Mean Corpuscular Volume 91.1 fL (80.0-100.0); Mean Platelet Volume 9.5 fL (9.4-12.4); Platelet Count 330 K/uL (130-400); RDW Standard Deviation 43.4 fL (36.4-46.3)
[2024-05-08 08:30] LABS: BUN Creatinine Ratio 9.1 (10-20); C Reactive Protein 23.35 mg/dl (0-0.5); Calcium 8.2 mg/dl (8.6-10.3); Creatinine Clr Calc Pharmacy 169.6 ml/min; Est GFR (Non-African American) 117.3 ml/min; Potassium 3.1 mmol/L (3.5-5.1)
--- NOTE | 2024-05-08 10:41 | Discharge Summary ---
Date of Service May 08, 2024 Admission HPI Per Admitting Provider This is a 38 yo female who presented to the ED with eval of difficulty breating nausea and diarrhea. Patient report that the N/V and diarrhea began 3 days ago. She was seen by her PCP and had an outpatient xray of her chest. She was found to have multifocal pneumonia. Patient was placed on augmentin and prednisone. However she reports worsening of her symptoms after just one day. However given her GI complaints, concern that patient may not tolerate her antibiotics so admission was called. Principal Diagnosis Pneumonia Discharge Exam Constitutional WD/WN, vitals as above Eyes PERRL, conjunctivae normal, anicteric sclerae ENMT external ear and nose normal, oropharynx normal Neck trachea midline, no thyromegaly Respiratory no respiratory distress and does not use accessory muscles Auscultation: lungs clear to auscultation bilaterally Cardiovascular RRR, no murmur, no edema Gastrointestinal (Abdomen) normal bowel sounds, soft, nontender, no hepatosplenomegaly Musculoskeletal no cyanosis or clubbing, extremities motor strength 5/5 Skin no rashes, warm and dry Neurologic PERRL, EOMI, accommodation nl, no face palsy, no dysarthria Psychiatric A+Ox3, euthymic affect Lymphatic no cervical or axillary lymphadenopathy Discharge Data Allergies Allergy/AdvReac Type Severity Reaction Status Date / Time sucralfate Allergy Unknown rash, Verified 05/02/24 15:31 pruritis cat dander Allergy Unknown Verified 05/05/24 00:38 dog dander Allergy Unknown Verified 05/05/24 00:38 Consultations 05/04/24 11:01 ED Decision to Admit Stat Ordered Studies 05/04/24 09:10 CT angio chest PE protocol Stat Hospital Course (1) Pneumonia: Community acquired pneumonia in a 38 yo female with cough, fever, chills. Patient was admitted to medical Patient had a clear sepsis picture given leukocytosis and HR above 90. Patient iprogressed well on antibiotics: ceftriaxone and doxy evidenced by an improved fever curve. Patient admitted on 05/04 and discharge on 04/07 after 36 hours of her being afebrile3 (2) Obese: recommend lifestylemodifications. BMI over 35 (3) Adjustment reaction with anxiety and depression: resume home meds Total Time Total Time Spent Total Time Spent (In Minutes): 32 Discharge Plan Discharge Items Patient Disposition: Home - Self-Care Reason For Visit: PNEUMONIA Discharge Diagnosis: Pneumonia Activity: Resume your previous activity Non-emergency contact: Primary Care Provider Call non-emergency contact if: you have any medication questions Follow-up/Referrals: Daisy Jurado MD [Primary Care Provider] - 05/19/24 11:00 am Diet: Regular Addtl Attending Provider Instructions: Good morning Mrs. Heller, You were treated with a pneumonia. This was a pretty severe infection, which explained why it took some time to respond to antibiotics, Thankfully, you ultimately improved and are feeling much better. Normally we would treat for a total of 7 days but we will extend it for 10 days of cefuroxime. You will only need 3 more days of doxycycline. Doxycycline (tonight will be the first dose): 1 tablet twice a day. Cefuroxime (first dose will be tomorrow morning) 1 tablet twice a day. Please take these medicines 12 hours apart. You can take them together. It was a pleasure and I wish you the best. I will recommend a close followup with your PCP in 1-2 weeks. Enjoy your family and the weekend. Best regards, Mynor Pooja Pending Studies at Discharge: No Stand-Alone Forms: [facility] [employer], Smoking Cessation Medications and DC Order Prescriptions: New cefuroxime axetil 500 mg tablet 500 mg PO BID 6 Days Qty: 12 0RF Rx Instructions: Frist dose on 05/09 in the morning. PLease take 12 hours apart doxycycline hyclate 100 mg tablet 100 mg PO BID 3 Days Qty: 6 0RF Continued Trelegy Ellipta 100-62.5-25 mcg blister with device 1 inh inhalation DAILY Qty: 60 1RF Rx Instructions: last filled 01/06/24 valacyclovir 1 gram tablet 2,000 mg PO BID 5 Days Qty: 20 5RF Rx Instructions: last filled 03/21/24 escitalopram oxalate 20 mg tablet 20 mg PO DAILY Qty: 90 3RF albuterol sulfate 1.25 mg/3 mL solution for nebulization 1.25 mg continuous nebulization .COMPLEX PRN (Reason: bronchospasm) Qty: 90 2RF Rx Instructions: 1.25 mg continuous nebulization ever 4-6 hours PRN; albuterol sulfate 90 mcg/actuation HFA aerosol inhaler 1 - 2 puff inhalation .Q4-6H PRN (Reason: Other) Rx Instructions: last filled 08/15/23 1 - 2 puffs inhalation Q4-6H; Discontinued amoxicillin-pot clavulanate 875-125 mg tablet 1 tab PO BID 10 Days Qty: 20 0RF prednisone 10 mg tablet See Rx Instructions PO DAILY Qty: 30 0RF Rx Instructions: Take 50mg daily for 2 days; then 40mg daily for 2 days; then 30mg daily for 2 days; then 20mg daily for 2 days; 10mg daily for 2 days orally daily; Discharge Orders: Discharge Order (Routine); Ordered 05/08/24 Ordered By: Mynor Evans/Other Patient Handouts: Preventing Pneumonia Admission Data Admit Date/Time: 05/04/24 11:33 Attending Provider: Mynor Patton Admit Provider: Mynor Patton Primary Care Provider: Daisy Jurado V. Other Providers: Mynor Patton Other Interventions: Discharge Summary Assessment (RN) Last Done: 05/08/24 11:07 Coding Level of Care Code 54298 INP/OBS DISCH >30 MIN Diagnoses Pneumonia J18.9 Laterality: bilateral Lung location: unspecified part of lung Pneumonia type: due to unspecified organism Obese E66.9 Adjustment reaction with anxiety and depression F43.23
[2024-05-08] MEDS: DOXYCYCLINE HYCLATE 100 MG CAP PO STA (10:47)
== END 2024-05-08 12:22 | disposition home or self-care (01) | DRG 195 ==
LOC: ED 07:57 → EDINP 11:33 → 3N 12:46